=== PATIENT | male | born 1960 | race African-American/Black ===

== ENCOUNTER 2020-02-16 10:20 | Emergency (ER) | payer OTHER ==
--- NOTE | 2020-02-16 11:19 | RAD ---
PORTABLE CHEST: Date: 02/16/2020 HISTORY: Cough. COMPARISON: None. FINDINGS: Borderline cardiomegaly. Vascularity is upper normal. No focal infiltrate. No significant effusion. IMPRESSION: No acute process. POS: AGW
[2020-02-16 11:41] LABS: #Basophils 0.1 thou/uL (0.0-0.2); #Eosinphils 0.4 thou/uL (0.0-0.7); #Lymphocytes 2.4 thou/uL (1.20-3.40); #Monocytes 0.8 thou/uL (0.11-0.59); %Basophils 0.8 % (0.0-1.0); %Eosinophils 5.3 % (0.0-10.0); %Lymphocytes 31.2 % (21.0-51.0); %Monocytes 10.6 % (0.0-10.0); %Neutrophils 52.1 % (42.0-75.0); Hemoglobin 10.8 g/dL (14.0-18.0); Mean Corpuscular HGB CONC 32.1 g/dL (32.0-36.0); Mean Corpuscular Hemoglobin 28.9 pg (27.0-31.0); Mean Corpuscular Volume 90.2 fL (78.0-98.0); Mean Platelet Volume 9.6 fL (7.4-10.4); Platelet Count 235 thou/uL (130-400); RBC Distribution Width 18.9 % (11.5-14.5); Red Blood Cell (RBC) Count 3.72 mill/uL (4.70-6.10); White Blood Cell (WBC) Count 7.7 thou/uL (4.8-10.8)
[2020-02-16 12:11] LABS: ALT (SGPT) 18 U/L (8-55); AST (SGOT) 57 U/L (5-34); Albumin 2.7 g/dL (3.5-5.0); Alkaline Phosphatase 75 U/L (40-110); Anion Gap 12 mmol/L (10-20); BUN (Urea Nitrogen) 11 mg/dL (8.4-25.7); Bilirubin, Total 0.3 mg/dL (0.2-1.2); Calc. Creatinine Clearance 0 mL/min (70-130); Calcium 7.9 mg/dL (7.8-10.44); Carbon Dioxide 19 mmol/L (22-29); Chloride 107 mmol/L (98-107); Estimated GFR-MDRD 83; Globulin 7.1 g/dL (2.4-3.5); Glucose 90 mg/dL (70-105); Protein, Total 9.8 g/dL (6.0-8.3); Sodium 133 mmol/L (136-145)
--- NOTE | 2020-02-19 15:19 | EKG ---
Test Reason : Blood Pressure : / mmHG Vent. Rate : 090 BPM Atrial Rate : 090 BPM P-R Int : 168 ms QRS Dur : 146 ms QT Int : 426 ms P-R-T Axes : 073 077 058 degrees QTc Int : 521 ms Normal sinus rhythm Left bundle branch block Abnormal ECG Confirmed by RUSTY WISDOM ([id number]), legal editor PEYTON PATEL ([id number]) on 02/19/2020 3:19:16 PM Referred By: Confirmed By:RUSTY Fay
== END 2020-02-16 12:49 ==
LOC: ERS 10:20
DX: R60.0 Localized edema (principal); B20 Human immunodeficiency virus [HIV] disease; I10 Essential (primary) hypertension; E03.9 Hypothyroidism, unspecified; Z79.899 Other long term (current) drug therapy; Z79.82 Long term (current) use of aspirin
CPT/HCPCS: 36415; 71045; 80053; 83880; 84484; 85025; 93005